=== PATIENT | female | born 1945 | race Caucasian/White ===

== ENCOUNTER 2017-08-26 13:20 | Inpatient (IN) | payer MEDICARE, OTHER ==
[~2017-08-26 13:20] MED LIST: CEFAZOLIN 1 GM INJ; LIDOCAINE 2% (SDV) 5 ML INJ; METOCLOPRAMIDE 10 MG INJ; ONDANSETRON 4 MG INJ
[2017-08-26] MEDS ORDERED: GELATIN SIZE 100 SPONGE (14:59)
[2017-08-26] MEDS ORDERED: LIDOCAINE 1%/EPI 30 ML INJ (14:59)
[2017-08-26] MEDS ORDERED: ACETAMINOPHEN 325 MG TAB PO (15:00)
[2017-08-26] MEDS ORDERED: NALOXONE (0.4 MG/ML) INJ IV (15:00)
[2017-08-26] MEDS ORDERED: HYDROmorphONE 0.5 MG/0.5 ML SYG IV (15:00)
[2017-08-26] MEDS ORDERED: BISACODYL 10 MG SUPP PR (15:00)
[2017-08-26] MEDS ORDERED: CEPASTAT LOZENGE MT (15:00)
[2017-08-26] MEDS ORDERED: FENTAnyl 50 MCG/ML VIAL ×2 (15:05→15:42)
[2017-08-26] MEDS ORDERED: PROPOFOL 20 ML (15:05)
[2017-08-26] MEDS ORDERED: MIDAZOLAM 1 MG/ML 2 ML INJ (15:05)
[2017-08-26] MEDS ORDERED: hydrALAzine 20 MG INJ (15:34)
[2017-08-26] MEDS ORDERED: SUCCINYLCHOLINE CHLORIDE 100 MG/5 ML SYG IV (15:40)
[2017-08-26] MEDS ORDERED: LABETALOL HCL 20MG INJ (15:40)
[2017-08-26] MEDS ORDERED: ROCURONIUM 50 MG INJ (15:41)
[2017-08-26] MEDS: SURGIFOAM POWDER 1 GM KIT (16:01)
[2017-08-26] MEDS: HEPARIN 1000 UNITS/ML 10 ML INJ (16:01)
[2017-08-26] MEDS: CA CHLORIDE 10% 10 ML SYRINGE (16:01)
[2017-08-26] MEDS: THROMBIN 5000 UNIT VIAL (16:02)
[2017-08-26] MEDS: POLYMYXIN/BACITRACIN 1L IRRIG (16:02)
[2017-08-26] MEDS: ONDANSETRON 4 MG INJ IV (17:28)
[2017-08-26] MEDS: DIPHENHYDRAMINE 50 MG INJ IV (17:28)
[2017-08-26] MEDS: MEPERIDINE 25 MG INJ IV (17:28)
[2017-08-26] MEDS: hydrALAzine 20 MG INJ IV (17:29)
[2017-08-26] MEDS: HYDROmorphONE 0.2 MG/ML PCA IV (17:29)
[2017-08-26] MEDS ORDERED: METOCLOPRAMIDE 10 MG INJ IV (17:30)
[2017-08-26] MEDS ORDERED: FENTAnyl 50 MCG/ML VIAL IV ×2 (17:30)
[2017-08-26] MEDS ORDERED: LABETALOL HCL 20MG INJ IV (17:30)
[2017-08-26] MEDS ORDERED: IPRATROPIUM (NEB) 0.5 MG/2.5 ML AMP HHN (17:30)
[2017-08-26] MEDS ORDERED: HYDROmorphONE (0.2 MG/ML) 10ML SYG IV ×2 (17:30)
[2017-08-26] MEDS ORDERED: DIPHENHYDRAMINE 50 MG INJ IV (17:30)
[2017-08-26] MEDS: D5W-0.45 NACL + KCL 20 MEQ 1,000 ML IV ×2 (18:41→23:24)
[2017-08-26] MEDS: DOCUSATE SODIUM 100 MG CAP PO (20:55)
[2017-08-26] MEDS: CEFAZOLIN 1 GM/50 ML (PMX) 50 ML IVPB (23:24)
[2017-08-27] MEDS: HYDROmorphONE 0.2 MG/ML PCA IV (04:01)
[2017-08-27 05:16] LABS: ADD MAN DIFF? NO
[2017-08-27 05:21] LABS: WHITE BLOOD COUNT 10.1 10^3/ul (4.8-10.8)
[2017-08-27 05:21] LABS: ABNORMAL IP MESSAGE 1; BASOPHILS % 0.2 % (0.0-2.0); EOSINOPHILS % 0.2 % (0.0-7.0); HEMATOCRIT 30.1 % (37.0-47.0); HEMOGLOBIN 10.8 g/dl (12.0-16.0); LYMPHOCYTES # 0.5 10^3/ul (0.8-2.9); MEAN CORPUSCULAR HEMOGLOBIN 34.8 pg (29.0-33.0); MEAN CORPUSCULAR HGB CONC 35.9 g/dl (32.0-37.0); MEAN CORPUSCULAR VOLUME 97.1 fl (82.0-101.0); MEAN PLATELET VOLUME 9.9 fl (7.4-10.4); MONOCYTE # 1.5 10^3/ul (0.3-0.9); MONOCYTES % 14.7 % (0.0-11.0); NEUTROPHILS % 79.6 % (39.0-77.0); PLATELET COUNT 177 10^3/UL (140-415)
[2017-08-27 06:07] LABS: ANION GAP 15 (8-16); BLOOD UREA NITROGEN 4 mg/dl (7-20); CALCIUM 8.5 mg/dl (8.4-10.2); CARBON DIOXIDE 24 mmol/L (21-31); CHLORIDE 95 mmol/L (97-110); CREATININE 0.42 mg/dl (0.44-1.00); GLUCOSE 109 mg/dl (70-220); MAGNESIUM 1.3 mg/dl (1.7-2.5); POTASSIUM 4.5 mmol/L (3.5-5.1); SODIUM 129 mmol/L (135-144)
[2017-08-27 06:26] LABS: POSITIVE DIFF @See below
[2017-08-27] MEDS: CEFAZOLIN 1 GM/50 ML (PMX) 50 ML IVPB (06:45)
[2017-08-27] MEDS: OXYCODONE/ACETAMINOPHEN (5/325) TAB PO ×3 (09:04→18:48)
[2017-08-27] MEDS: DOCUSATE SODIUM 100 MG CAP PO ×2 (09:04→21:25)
[2017-08-27] MEDS: ONDANSETRON 4 MG INJ IV (10:31)
[2017-08-27] MEDS: D5W-0.45 NACL + KCL 20 MEQ 1,000 ML IV ×2 (10:33→21:27)
[2017-08-27] MEDS: AL HYDROX/MG HYDROX/SIMETH 30 ML CUP PO (15:57)
[2017-08-28] MEDS: OXYCODONE/ACETAMINOPHEN (5/325) TAB PO ×4 (00:49→13:22)
[2017-08-28] MEDS: D5W-0.45 NACL + KCL 20 MEQ 1,000 ML IV (06:29)
[2017-08-28] MEDS: CARISOPRODOL 350 MG TAB PO (08:01)
[2017-08-28] MEDS: DOCUSATE SODIUM 100 MG CAP PO (08:34)
== END 2017-08-28 13:30 | disposition home or self-care (01) | DRG 517 ==
LOC: REC 13:20 → MS1 18:10
PROC: 01NB0ZZ Release Lumbar Nerve, Open Approach (ICD-10-PCS; principal; 2017-08-26 15:06)
DX: M51.16 Intervertebral disc disorders with radiculopathy, lumbar region (principal); M48.061 Spinal stenosis, lumbar region without neurogenic claudication; I11.9 Hypertensive heart disease without heart failure; M41.9 Scoliosis, unspecified; M81.0 Age-related osteoporosis without current pathological fracture; M41.86 Other forms of scoliosis, lumbar region
CPT/HCPCS: 72020; 80048; 83735; 85025; 86999; 97116; 97161; 97530

== ENCOUNTER 2018-12-15 09:55 | Inpatient (IN) | payer MEDICARE, OTHER ==
[2018-12-15] MEDS ORDERED: THROMBIN 5000 UNIT VIAL (10:55)
[2018-12-15] MEDS ORDERED: CA CHLORIDE 10% 10 ML SYRINGE (10:56)
[2018-12-15] MEDS ORDERED: HEPARIN 1000 UNITS/ML 10 ML INJ (10:57)
[2018-12-15] MEDS ORDERED: CEFAZOLIN 1 GM INJ (11:06)
[2018-12-15] MEDS ORDERED: GLYCOPYRROLATE 0.4 MG INJ (11:06)
[2018-12-15] MEDS ORDERED: ROCURONIUM 50 MG INJ (11:06)
[2018-12-15] MEDS ORDERED: NEOSTIGMINE 3 MG/3 ML SYRINGE (11:06)
[2018-12-15] MEDS ORDERED: PROPOFOL 20 ML (11:06)
[2018-12-15] MEDS ORDERED: DESFLURANE 15 MIN (11:06)
[2018-12-15] MEDS ORDERED: ONDANSETRON 4 MG INJ (11:07)
[2018-12-15] MEDS ORDERED: DEXAMETHASONE 4 MG/ML 5 ML INJ (11:07)
[2018-12-15] MEDS ORDERED: MIDAZOLAM 1 MG/ML 2 ML INJ (11:07)
[2018-12-15] MEDS: LACTATED RINGER'S 1,000 ML IV (11:33)
[2018-12-15] MEDS ORDERED: ONDANSETRON 4 MG INJ IV (12:30)
[2018-12-15] MEDS ORDERED: DIPHENHYDRAMINE 25 MG CAP PO (12:30)
[2018-12-15] MEDS ORDERED: ALBUTEROL 0.083% (NEB) 2.5 MG/3 ML AMP HHN (12:30)
[2018-12-15] MEDS ORDERED: EPHEDrine 25 MG/5 ML SYG IV (12:30)
[2018-12-15] MEDS ORDERED: MIDAZOLAM 1 MG/ML 2 ML INJ IV (12:30)
[2018-12-15] MEDS ORDERED: HYDROmorphONE 1 MG/5 ML IV SYRINGE IV (12:30)
[2018-12-15] MEDS ORDERED: BISACODYL 10 MG SUPP PR (12:30)
[2018-12-15] MEDS ORDERED: TRIMETHOBENZAMIDE 100 MG/ML VIAL IM (12:30)
[2018-12-15] MEDS ORDERED: NALOXONE (0.4 MG/ML) INJ IV (12:30)
[2018-12-15] MEDS ORDERED: IPRATROPIUM (NEB) 0.5 MG/2.5 ML AMP HHN (12:30)
[2018-12-15] MEDS ORDERED: CEPASTAT LOZENGE MT (12:30)
[2018-12-15] MEDS ORDERED: LABETALOL HCL 20MG INJ IV (12:30)
[2018-12-15] MEDS ORDERED: FENTAnyl 50 MCG/ML VIAL IV ×3 (12:30)
[2018-12-15] MEDS ORDERED: DIPHENHYDRAMINE 50 MG INJ IV (12:30)
[2018-12-15] MEDS ORDERED: MEPERIDINE 25 MG INJ IV (12:30)
[2018-12-15] MEDS ORDERED: hydrALAzine 20 MG INJ IV (12:30)
[2018-12-15] MEDS ORDERED: HYDROmorphONE 0.5 MG/0.5 ML SYG IV (12:30)
[2018-12-15] MEDS ORDERED: AL HYDROX/MG HYDROX/SIMETH 30 ML CUP PO (12:30)
[2018-12-15] MEDS ORDERED: ACETAMINOPHEN 325 MG TAB PO (12:30)
[2018-12-15] MEDS: POLYMYXIN/BACITRACIN 1L IRRIG (13:42)
[2018-12-15] MEDS: BUPIVACAINE 0.5%/EPI (SDV) 30 ML INJ (13:42)
[2018-12-15] MEDS ORDERED: hydrALAzine 20 MG INJ (14:11)
[2018-12-15] MEDS ORDERED: SUGAMMADEX SODIUM 200 MG/2 ML VIAL IV (15:07)
[2018-12-15] MEDS ORDERED: FENTAnyl 50 MCG/ML VIAL (15:23)
[2018-12-15] MEDS: ONDANSETRON 4 MG INJ IV (15:48)
[2018-12-15] MEDS: HYDROmorphONE 1 MG/5 ML IV SYRINGE IV ×2 (15:49→16:18)
[2018-12-15 15:57] LABS: ADD UMIC NO; UR ASCORBIC ACID NEGATIVE (NEGATIVE); UR BILIRUBIN (Dip) NEGATIVE (NEGATIVE); UR BLOOD (Dip) NEGATIVE (NEGATIVE); UR CLARITY CLEAR (CLEAR); UR COLOR STRAW (YELLOW); UR GLUCOSE (Dip) 1+ mg/dL (NEGATIVE); UR KETONES (Dip) TRACE mg/dL (NEGATIVE); UR LEUKOCYTE ESTERASE (Dip) NEGATIVE Leu/ul (NEGATIVE); UR NITRITE (Dip) NEGATIVE (NEGATIVE); UR SPECIFIC GRAVITY (Dip) 1.008 (1.003-1.030); UR TOTAL PROTEIN (Dip) NEGATIVE (NEGATIVE); UR UROBILINOGEN (Dip) NEGATIVE (NEGATIVE)
[2018-12-15] MEDS: HYDROmorphONE 0.2 MG/ML PCA IV ×2 (16:00→21:40)
[2018-12-15] MEDS: DIPHENHYDRAMINE 50 MG INJ IV (16:22)
[2018-12-15] MEDS: D5W-0.45 NACL + KCL 20 MEQ 1,000 ML IV ×2 (17:47→22:19)
[2018-12-15] MEDS: CYCLOBENZAPRINE 10 MG TAB PO (17:47)
[2018-12-15] MEDS: DOCUSATE SODIUM 100 MG CAP PO (21:16)
[2018-12-15] MEDS: ATORVASTATIN 10 MG TAB PO (21:16)
[2018-12-15] MEDS: CEFAZOLIN 1 GM/50 ML (PMX) 50 ML IVPB (21:17)
[2018-12-15] MEDS: LORAZEPAM 1 MG TAB PO (22:29)
[2018-12-16] MEDS: CEFAZOLIN 1 GM/50 ML (PMX) 50 ML IVPB ×3 (04:35→22:41)
[2018-12-16] MEDS: D5W-0.45 NACL + KCL 20 MEQ 1,000 ML IV ×2 (04:36→15:18)
[2018-12-16 05:54] LABS: ADD MAN DIFF? NO
[2018-12-16 06:02] LABS: ABNORMAL IP MESSAGE 1; BASOPHILS % 0.1 % (0.0-2.0); HEMATOCRIT 36.4 % (37.0-47.0); HEMOGLOBIN 12.5 g/dl (12.0-16.0); LYMPHOCYTES # 0.3 10^3/ul (0.8-2.9); LYMPHOCYTES % 3.3 % (15.0-51.0); MEAN CORPUSCULAR HEMOGLOBIN 35.4 pg (29.0-33.0); MEAN CORPUSCULAR HGB CONC 34.3 g/dl (32.0-37.0); MEAN CORPUSCULAR VOLUME 103.1 fl (82.0-101.0); MEAN PLATELET VOLUME 9.8 fl (7.4-10.4); MONOCYTE # 0.7 10^3/ul (0.3-0.9); MONOCYTES % 8.8 % (0.0-11.0); NEUTROPHIL # 7.2 10^3/ul (1.6-7.5); NEUTROPHILS % 87.2 % (39.0-77.0); PLATELET COUNT 143 10^3/UL (140-415); RED BLOOD COUNT 3.53 10^6/ul (4.20-5.40); RED CELL DISTRIBUTION WIDTH 12.8 % (11.5-14.5)
[2018-12-16 06:02] LABS: WHITE BLOOD COUNT 8.3 10^3/ul (4.8-10.8)
[2018-12-16 06:08] LABS: POSITIVE DIFF @See below
[2018-12-16 06:29] LABS: ANION GAP 8 (5-13); BLOOD UREA NITROGEN 4 mg/dl (7-20); CALCIUM 9.1 mg/dl (8.4-10.2); CARBON DIOXIDE 26 mmol/L (21-31); CHLORIDE 94 mmol/L (97-110); CREATININE 0.34 mg/dl (0.44-1.00); GLUCOSE 148 mg/dl (70-220); MAGNESIUM 1.2 mg/dl (1.7-2.5); POTASSIUM 4.3 mmol/L (3.5-5.1); SODIUM 128 mmol/L (135-144)
[2018-12-16] MEDS ORDERED: GLYCOPYRROLATE 0.4 MG INJ ×2 (07:08→10:05)
[2018-12-16] MEDS ORDERED: NEOSTIGMINE 3 MG/3 ML SYRINGE (07:08)
[2018-12-16] MEDS ORDERED: ROCURONIUM 50 MG INJ ×2 (07:08→10:04)
[2018-12-16] MEDS ORDERED: LIDOCAINE 2% (SDV) 5 ML INJ (07:08)
[2018-12-16] MEDS ORDERED: PROPOFOL 20 ML (07:08)
[2018-12-16] MEDS ORDERED: SUCCINYLCHOLINE CHLORIDE 100 MG/5 ML SYG IV (07:08)
[2018-12-16] MEDS ORDERED: MEPERIDINE 100 MG INJ (07:10)
[2018-12-16] MEDS ORDERED: CEFAZOLIN 1 GM INJ (07:21)
[2018-12-16] MEDS ORDERED: SEVOFLURANE 15 MIN (07:30)
[2018-12-16] MEDS ORDERED: MIDAZOLAM 1 MG/ML 2 ML INJ (07:31)
[2018-12-16] MEDS: CEFAZOLIN 2 GM/50 ML (PMX) 50 ML IVPB (07:37)
[2018-12-16] MEDS: HEPARIN 1000 UNITS/ML 10 ML INJ (08:00)
[2018-12-16] MEDS ORDERED: ATROPINE 1 MG/10 ML SYRINGE (09:02)
[2018-12-16] MEDS ORDERED: EPHEDrine 25 MG/5 ML SYG (09:02)
[2018-12-16] MEDS: GELATIN SIZE 100 SPONGE (09:21)
[2018-12-16] MEDS: SURGIFOAM POWDER 1 GM KIT (09:21)
[2018-12-16] MEDS: THROMBIN 5000 UNIT VIAL (09:22)
[2018-12-16] MEDS: BUPIVACAINE 0.25%/EPI (SDV) 30 ML INJ (11:13)
[2018-12-16] MEDS ORDERED: POLYMYXIN/BACITRACIN 1L IRRIG (12:37)
[2018-12-16] MEDS ORDERED: ONDANSETRON 4 MG INJ (12:54)
[2018-12-16] MEDS ORDERED: METOCLOPRAMIDE 10 MG INJ (12:54)
[2018-12-16] MEDS ORDERED: NALOXONE (0.4 MG/ML) INJ IV (13:30)
[2018-12-16] MEDS ORDERED: CYCLOBENZAPRINE 10 MG TAB PO (13:30)
[2018-12-16] MEDS ORDERED: ACETAMINOPHEN 325 MG TAB PO (13:30)
[2018-12-16] MEDS ORDERED: CEPASTAT LOZENGE MT (13:30)
[2018-12-16] MEDS ORDERED: oxyCODONE 5 MG TAB PO (13:30)
[2018-12-16] MEDS ORDERED: HYDROmorphONE 0.5 MG/0.5 ML SYG IV (13:30)
[2018-12-16] MEDS ORDERED: DIPHENHYDRAMINE 50 MG INJ IV ×2 (13:30→14:00)
[2018-12-16] MEDS ORDERED: DIPHENHYDRAMINE 25 MG CAP PO (13:30)
[2018-12-16] MEDS ORDERED: MEPERIDINE 25 MG INJ (13:50)
[2018-12-16] MEDS ORDERED: HYDROmorphONE 1 MG/5 ML IV SYRINGE IV ×2 (13:51→14:00)
[2018-12-16] MEDS ORDERED: METOCLOPRAMIDE 10 MG INJ IV (14:00)
[2018-12-16] MEDS ORDERED: EPHEDrine 25 MG/5 ML SYG IV (14:00)
[2018-12-16] MEDS ORDERED: hydrALAzine 20 MG INJ IV (14:00)
[2018-12-16] MEDS ORDERED: ONDANSETRON 4 MG INJ IV (14:00)
[2018-12-16] MEDS ORDERED: LABETALOL HCL 20MG INJ IV (14:00)
[2018-12-16] MEDS ORDERED: MIDAZOLAM 1 MG/ML 2 ML INJ IV (14:00)
[2018-12-16] MEDS ORDERED: FENTAnyl 50 MCG/ML VIAL IV ×2 (14:00)
[2018-12-16] MEDS: MEPERIDINE 25 MG INJ IV (14:08)
[2018-12-16] MEDS: HYDROmorphONE 1 MG/5 ML IV SYRINGE IV ×2 (14:11→14:13)
[2018-12-16] MEDS: FENTAnyl 50 MCG/ML VIAL IV ×2 (14:28→14:37)
[2018-12-16] MEDS: HYDROmorphONE 0.2 MG/ML PCA IV (15:16)
[2018-12-16] MEDS: LOSARTAN 50 MG TAB PO (16:20)
[2018-12-16] MEDS: MAGNESIUM SULFATE 4 GM/100 ML 100 ML IVPB (16:21)
[2018-12-16] MEDS ORDERED: CEFAZOLIN 1 GM/50 ML (PMX) 50 ML IVPB (18:00)
[2018-12-16 19:35] LABS: FOLATE 2.6 ng/ml (2.8-20.0)
[2018-12-16] MEDS: SOD CHLORIDE 0.9% 100 ML (20:21)
[2018-12-16] MEDS: IOHEXOL 100 ML (20:21)
[2018-12-16] MEDS: ATORVASTATIN 10 MG TAB PO (21:02)
[2018-12-16] MEDS: DOCUSATE SODIUM 100 MG CAP PO (21:02)
[2018-12-17] MEDS: D5W-0.45 NACL + KCL 20 MEQ 1,000 ML IV ×4 (04:20→23:49)
[2018-12-17] MEDS: HYDROmorphONE 0.2 MG/ML PCA IV (06:00)
[2018-12-17] MEDS: CEFAZOLIN 1 GM/50 ML (PMX) 50 ML IVPB (06:46)
[2018-12-17 08:35] LABS: ADD MAN DIFF? NO
[2018-12-17 08:38] LABS: ABNORMAL IP MESSAGE 1; BASOPHILS % 0.3 % (0.0-2.0); EOSINOPHILS % 0.1 % (0.0-7.0); HEMATOCRIT 28.2 % (37.0-47.0); HEMOGLOBIN 9.7 g/dl (12.0-16.0); LYMPHOCYTES # 0.6 10^3/ul (0.8-2.9); LYMPHOCYTES % 7.4 % (15.0-51.0); MEAN CORPUSCULAR HEMOGLOBIN 36.2 pg (29.0-33.0); MEAN CORPUSCULAR HGB CONC 34.4 g/dl (32.0-37.0); MEAN CORPUSCULAR VOLUME 105.2 fl (82.0-101.0); MEAN PLATELET VOLUME 10.4 fl (7.4-10.4); MONOCYTE # 1.3 10^3/ul (0.3-0.9); MONOCYTES % 16.9 % (0.0-11.0); NEUTROPHIL # 5.6 10^3/ul (1.6-7.5); NEUTROPHILS % 74.9 % (39.0-77.0); PLATELET COUNT 147 10^3/UL (140-415); RED BLOOD COUNT 2.68 10^6/ul (4.20-5.40); RED CELL DISTRIBUTION WIDTH 12.9 % (11.5-14.5)
[2018-12-17 08:38] LABS: WHITE BLOOD COUNT 7.4 10^3/ul (4.8-10.8)
[2018-12-17 08:41] LABS: POSITIVE DIFF @See below
[2018-12-17] MEDS: DOCUSATE SODIUM 100 MG CAP PO ×2 (08:44→20:57)
[2018-12-17] MEDS: LOSARTAN 50 MG TAB PO (08:46)
[2018-12-17 08:56] LABS: MAGNESIUM 1.9 mg/dl (1.7-2.5)
[2018-12-17 08:58] LABS: ALANINE AMINOTRANSFERASE 40 IU/L (13-69); ALBUMIN 2.7 g/dl (3.3-4.9); ALBUMIN/GLOBULIN RATIO 1.12; ALKALINE PHOSPHATASE 35 IU/L (42-121); ANION GAP 4 (5-13); ASPARTATE AMINO TRANSFERASE 60 IU/L (15-46); BILIRUBIN,INDIRECT 0.7 mg/dl (0-1.1); BILIRUBIN,TOTAL 0.7 mg/dl (0.2-1.3); BLOOD UREA NITROGEN 4 mg/dl (7-20); CALCIUM 8.3 mg/dl (8.4-10.2); CARBON DIOXIDE 28 mmol/L (21-31); CHLORIDE 94 mmol/L (97-110); GLUCOSE 95 mg/dl (70-220); POTASSIUM 4.5 mmol/L (3.5-5.1); SODIUM 126 mmol/L (135-144); TOTAL PROTEIN 5.1 g/dl (6.1-8.1)
[2018-12-17 09:03] LABS: PHOSPHORUS 3.1 mg/dl (2.5-4.9)
[2018-12-17] MEDS ORDERED: oxyCODONE 5 MG TAB PO (09:30)
[2018-12-17] MEDS: AL HYDROX/MG HYDROX/SIMETH 30 ML CUP PO ×2 (11:38→18:34)
[2018-12-17] MEDS: ATORVASTATIN 10 MG TAB PO (20:57)
[2018-12-17] MEDS: ONDANSETRON 4 MG INJ IV (23:49)
[2018-12-18 05:11] LABS: ABNORMAL IP MESSAGE 1; HEMATOCRIT 27.8 % (37.0-47.0); HEMOGLOBIN 9.8 g/dl (12.0-16.0); MEAN CORPUSCULAR HEMOGLOBIN 35.8 pg (29.0-33.0); MEAN CORPUSCULAR HGB CONC 35.3 g/dl (32.0-37.0); MEAN CORPUSCULAR VOLUME 101.5 fl (82.0-101.0); MEAN PLATELET VOLUME 9.9 fl (7.4-10.4); PLATELET COUNT 152 10^3/UL (140-415); RED BLOOD COUNT 2.74 10^6/ul (4.20-5.40); RED CELL DISTRIBUTION WIDTH 12.2 % (11.5-14.5)
[2018-12-18 05:11] LABS: WHITE BLOOD COUNT 8.4 10^3/ul (4.8-10.8)
[2018-12-18 05:14] LABS: POSITIVE DIFF @See below
[2018-12-18 05:15] LABS: ADD MAN DIFF? YES
[2018-12-18] MEDS: ONDANSETRON 4 MG INJ IV (05:36)
[2018-12-18 05:37] LABS: ANION GAP 6 (5-13); BLOOD UREA NITROGEN 3 mg/dl (7-20); CALCIUM 8.2 mg/dl (8.4-10.2); CARBON DIOXIDE 27 mmol/L (21-31); CHLORIDE 91 mmol/L (97-110); CREATININE 0.34 mg/dl (0.44-1.00); GLUCOSE 127 mg/dl (70-220); MAGNESIUM 1.6 mg/dl (1.7-2.5); POTASSIUM 4.3 mmol/L (3.5-5.1); SODIUM 124 mmol/L (135-144)
[2018-12-18 07:30] LABS: ANISOCYTOSIS 1+ (0-0); BAND NEUTROPHILS % (M) 24 % (0-4); LYMPHOCYTES #M 0.1 10^3/ul (0.8-2.9); LYMPHOCYTES % (M) 2 % (15-51); MONOCYTE #M 0.7 10^3/ul (0.3-0.9); MONOCYTES % (M) 9 % (0-11); PLATELET ESTIMATE NORMAL; POIKILOCYTOSIS 1+ (0-0); REACTIVE LYMPHOCYTES #M 0.3 10^3/ul (0.0-0.0); REACTIVE LYMPHOCYTES% (M) 4 % (0-0); SEG NEUT #M 5.3 10^3/ul (1.6-7.5); SEGMENTED NEUTROPHILS (M) % 61 % (39-77); SMUDGE%M 30 % (0-0)
[2018-12-18] MEDS ORDERED: NACL 3% 250 ML IV (08:30)
[2018-12-18] MEDS ORDERED: NACL 3% 500 ML IV (08:30)
[2018-12-18 08:44] LABS: IRON 24 ug/dl (35-150)
[2018-12-18 08:53] LABS: % IRON SATURATION 11 % SAT (22-52); TOTAL IRON BINDING CAPACITY 223 ug/dl (241-421)
[2018-12-18] MEDS: LOSARTAN 50 MG TAB PO (09:48)
[2018-12-18] MEDS: THIAMINE 100 MG TAB PO (09:48)
[2018-12-18] MEDS: DOCUSATE SODIUM 100 MG CAP PO ×2 (09:49→20:58)
[2018-12-18] MEDS: FOLIC ACID 1 MG TAB PO (09:49)
[2018-12-18] MEDS: THIAMINE 200 MG INJ IM (09:52)
[2018-12-18] MEDS: NACL 3% 250 ML IV (09:58)
[2018-12-18] MEDS: D5W-0.45 NACL + KCL 20 MEQ 1,000 ML IV (10:14)
[2018-12-18] MEDS: MAGNESIUM SULFATE 4 GM/100 ML 100 ML IVPB (10:18)
[2018-12-18] MEDS: AL HYDROX/MG HYDROX/SIMETH 30 ML CUP PO (12:41)
[2018-12-18] MEDS: oxyCODONE 5 MG TAB PO (12:45)
[2018-12-18 12:50] LABS: FREE T4 (FREE THYROXINE) 1.31 ng/dl (0.78-2.44)
[2018-12-18] MEDS: AMLODIPINE 5 MG TAB PO (17:23)
[2018-12-18 17:51] LABS: SODIUM,URINE RANDOM 115 mmol/L (30-90)
[2018-12-18 17:56] LABS: SODIUM 121 mmol/L (135-144)
[2018-12-18 18:40] LABS: OSMOLALITY,URINE 380 mOsm/kg (250-1200)
[2018-12-18] MEDS: ATORVASTATIN 10 MG TAB PO (20:58)
[2018-12-18] MEDS: NACL 3% 500 ML IV (23:56)
[2018-12-19] MEDS: DEXTROSE 5%-LR 1,000 ML IV (00:04)
[2018-12-19] MEDS: SOD FERRIC GLUC COMPLX 125 MG in SOD CHLORIDE 0.9% 100 ML IVPB ×2 (00:43→14:54)
[2018-12-19 05:15] LABS: WHITE BLOOD COUNT 7.4 10^3/ul (4.8-10.8)
[2018-12-19 05:15] LABS: ABNORMAL IP MESSAGE 1; HEMATOCRIT 25.3 % (37.0-47.0); HEMOGLOBIN 8.9 g/dl (12.0-16.0); MEAN CORPUSCULAR HEMOGLOBIN 35.6 pg (29.0-33.0); MEAN CORPUSCULAR HGB CONC 35.2 g/dl (32.0-37.0); MEAN CORPUSCULAR VOLUME 101.2 fl (82.0-101.0); MEAN PLATELET VOLUME 10.2 fl (7.4-10.4); PLATELET COUNT 159 10^3/UL (140-415); RED CELL DISTRIBUTION WIDTH 12.1 % (11.5-14.5)
[2018-12-19 05:18] LABS: ADD MAN DIFF? YES; POSITIVE DIFF @See below
[2018-12-19] MEDS: AL HYDROX/MG HYDROX/SIMETH 30 ML CUP PO ×3 (05:23→20:34)
[2018-12-19] MEDS: BISACODYL 10 MG SUPP PR (05:23)
[2018-12-19 05:40] LABS: ANION GAP 5 (5-13); BLOOD UREA NITROGEN 4 mg/dl (7-20); CALCIUM 7.6 mg/dl (8.4-10.2); CARBON DIOXIDE 25 mmol/L (21-31); CHLORIDE 93 mmol/L (97-110); CREATININE 0.37 mg/dl (0.44-1.00); GLUCOSE 117 mg/dl (70-220); MAGNESIUM 1.7 mg/dl (1.7-2.5); POTASSIUM 3.3 mmol/L (3.5-5.1); SODIUM 123 mmol/L (135-144)
[2018-12-19 06:52] LABS: BAND NEUTROPHILS #M 0.5 10^3/ul (0.0-0.6); BAND NEUTROPHILS % (M) 8 % (0-4); EOSINOPHILS % (M) 1 % (0-7); LYMPHOCYTES #M 0.5 10^3/ul (0.8-2.9); LYMPHOCYTES % (M) 7 % (15-51); MONOCYTE #M 0.2 10^3/ul (0.3-0.9); MONOCYTES % (M) 4 % (0-11); PLATELET ESTIMATE NORMAL; SEGMENTED NEUTROPHILS (M) % 80 % (39-77); SMUDGE%M 21 % (0-0); SPHEROCYTES 1+ (0-0)
[2018-12-19] MEDS: DOCUSATE SODIUM 100 MG CAP PO ×2 (09:17→20:34)
[2018-12-19] MEDS: FOLIC ACID 1 MG TAB PO (09:18)
[2018-12-19] MEDS: THIAMINE 100 MG TAB PO (09:18)
[2018-12-19] MEDS: LOSARTAN 50 MG TAB PO (09:18)
[2018-12-19 10:00] LABS: SODIUM,URINE RANDOM 141 mmol/L (30-90)
[2018-12-19] MEDS: oxyCODONE 5 MG TAB PO (10:57)
[2018-12-19 11:20] LABS: OSMOLALITY,URINE 505 mOsm/kg (250-1200)
[2018-12-19] MEDS: CALCIUM CARBONATE 500 MG CHEW TAB PO (18:02)
[2018-12-19] MEDS: NACL 3% 500 ML IV (18:06)
[2018-12-19] MEDS: ATORVASTATIN 10 MG TAB PO (20:34)
[2018-12-19 21:35] LABS: SODIUM 123 mmol/L (135-144)
[2018-12-20] MEDS: BISACODYL 10 MG SUPP PR (05:47)
[2018-12-20] MEDS: NACL 3% 500 ML IV (08:00)
[2018-12-20] MEDS: POTASSIUM CHLORIDE 100 ML IVPB ×3 (08:00→11:00)
[2018-12-20 08:03] LABS: OSMOLALITY,URINE 376 mOsm/kg (250-1200)
[2018-12-20] MEDS: THIAMINE 100 MG TAB PO (09:09)
[2018-12-20] MEDS: FOLIC ACID 1 MG TAB PO (09:09)
[2018-12-20] MEDS: DOCUSATE SODIUM 100 MG CAP PO (09:09)
[2018-12-20] MEDS: LOSARTAN 50 MG TAB PO (09:09)
[2018-12-20] MEDS: POTASSIUM CHLORIDE (SR) 20 MEQ TAB PO ×2 (09:10→12:59)
[2018-12-20] MEDS: oxyCODONE 5 MG TAB PO (09:10)
[2018-12-20 10:42] LABS: ANION GAP 8 (5-13); BLOOD UREA NITROGEN 3 mg/dl (7-20); CALCIUM 8.1 mg/dl (8.4-10.2); CARBON DIOXIDE 24 mmol/L (21-31); CHLORIDE 93 mmol/L (97-110); CREATININE 0.34 mg/dl (0.44-1.00); GLUCOSE 112 mg/dl (70-220); SODIUM 125 mmol/L (135-144)
[2018-12-20] MEDS: SOD FERRIC GLUC COMPLX 125 MG in SOD CHLORIDE 0.9% 100 ML IVPB (13:00)
== END 2018-12-20 15:30 | disposition home health service (06) | DRG 457 ==
LOC: REC 09:55 → MS1 12-18 09:36
PROC: 0SG10A0 Fusion of 2 or more Lumbar Vertebral Joints with Interbody Fusion Device, Anterior Approach, Anterior Column, Open Approach (ICD-10-PCS; principal; 2018-12-15 12:00)
PROC: 0ST20ZZ Resection of Lumbar Vertebral Disc, Open Approach (ICD-10-PCS; 2018-12-15 12:00)
PROC: 4A11X4G Monitoring of Peripheral Nervous Electrical Activity, Intraoperative, External Approach (ICD-10-PCS; 2018-12-15 12:00)
PROC: 0ST20ZZ Resection of Lumbar Vertebral Disc, Open Approach (ICD-10-PCS; 2018-12-15 12:37)
PROC: 0SG00A0 Fusion of Lumbar Vertebral Joint with Interbody Fusion Device, Anterior Approach, Anterior Column, Open Approach (ICD-10-PCS; 2018-12-15 12:37)
PROC: 0SG30A0 Fusion of Lumbosacral Joint with Interbody Fusion Device, Anterior Approach, Anterior Column, Open Approach (ICD-10-PCS; 2018-12-15 12:37)
PROC: 0ST40ZZ Resection of Lumbosacral Disc, Open Approach (ICD-10-PCS; 2018-12-15 12:37)
PROC: 0SG10AJ Fusion of 2 or more Lumbar Vertebral Joints with Interbody Fusion Device, Posterior Approach, Anterior Column, Open Approach (ICD-10-PCS; 2018-12-15 12:37)
PROC: 0SG30AJ Fusion of Lumbosacral Joint with Interbody Fusion Device, Posterior Approach, Anterior Column, Open Approach (ICD-10-PCS; 2018-12-15 12:37)
PROC: 4A11X4G Monitoring of Peripheral Nervous Electrical Activity, Intraoperative, External Approach (ICD-10-PCS; 2018-12-15 12:37)
DX: M41.56 Other secondary scoliosis, lumbar region (principal); E87.1 Hypo-osmolality and hyponatremia; M41.57 Other secondary scoliosis, lumbosacral region; M48.061 Spinal stenosis, lumbar region without neurogenic claudication; M51.17 Intervertebral disc disorders with radiculopathy, lumbosacral region; I10 Essential (primary) hypertension; E78.5 Hyperlipidemia, unspecified; D50.9 Iron deficiency anemia, unspecified; E87.6 Hypokalemia; E83.42 Hypomagnesemia; D52.9 Folate deficiency anemia, unspecified; R11.2 Nausea with vomiting, unspecified; T40.2X5A Adverse effect of other opioids, initial encounter
CPT/HCPCS: 71275; 72020; 72114; 80048; 80053; 81003; 82533; 82607; 82728; 82746; 83540; 83735; 83935; 84100; 84295; 84300; 84439; 84443; 85025; 86850; 86900; 86901; 86920; 86999; 87086; 88304; 97116; 97162; 97530